=== PATIENT | male | born 1975 | race Caucasian/White ===

== ENCOUNTER 2018-03-16 20:03 | Observation (INO) | payer MEDICAID, OTHER, SELFPAY ==
[2018-03-16] MEDS ORDERED: HYDROMORPHONE HCL 0.5 MG/ 0.5 ML SYRINGE (J1170 PER 1) IV (20:30)
[2018-03-16] MEDS: HYDROMORPHONE HCL 0.5 MG/ 0.5 ML SYRINGE (J1170 PER 1) IV ×3 (20:56→23:05)
[2018-03-16 21:02] LABS: BASO # 0.1 10^3/uL (0.0-0.2); BASO % 0.7 % (0.0-1.0); EOS # 0.2 10^3/uL (0.0-0.50); EOS % 2.3 % (0.0-3.0); HEMATOCRIT 43.3 % (42.0-52.0); HEMOGLOBIN 15.7 g/dl (13.5-17.5); IMMATURE GRANULOCYTE % 0.3 % (0-3.0); LYMPH # 2.2 10^3/uL (1.5-4.5); LYMPH % 24.7 % (24.0-44.0); MEAN CORPUSCULAR HEMOGLOBIN 32.9 pg (27.0-33.0); MEAN CORPUSCULAR HGB CONC 36.3 g/dl (32.0-36.5); MEAN CORPUSCULAR VOLUME 90.8 fl (80.0-96.0); MONO # 0.9 10^3/uL (0.0-0.8); MONO % 9.6 % (0.0-5.0); NEUTROPHILS # 5.5 10^3/uL (1.8-7.7); NEUTROPHILS % 62.4 % (36.0-66.0); PLATELET COUNT, AUTOMATED 248 10^3/uL (150-450); RED BLOOD COUNT 4.77 10^6/uL (4.30-6.10); WHITE BLOOD COUNT 8.8 10^3/uL (4.0-10.0)
[2018-03-16 21:23] LABS: ALBUMIN 3.8 GM/DL (3.2-5.2); ALKALINE PHOSPHATASE 129 U/L (45-117); ALT/SGPT 57 U/L (12-78); ANION GAP 10 MEQ/L (8-16); AST/SGOT 38 U/L (7-37); BILIRUBIN,DIRECT < 0.1 MG/DL (0.0-0.2); BILIRUBIN,TOTAL 0.4 MG/DL (0.2-1.0); BLOOD UREA NITROGEN 11 MG/DL (7-18); CALCIUM LEVEL 8.3 MG/DL (8.5-10.1); CARBON DIOXIDE LEVEL 26 MEQ/L (21-32); CHLORIDE LEVEL 107 MEQ/L (98-107); CREATININE FOR GFR 0.84 MG/DL (0.70-1.30); GLOMERULAR FILTRATION RATE > 60.0 (>60); GLUCOSE, FASTING 94 MG/DL (70-100); POTASSIUM SERUM 3.8 MEQ/L (3.5-5.1); SODIUM LEVEL 143 MEQ/L (136-145); TOTAL PROTEIN 7.6 GM/DL (6.4-8.2)
[2018-03-16 21:38] LABS: INR 1.06; PARTIAL THROMBOPLASTIN TIME 28.3 SECONDS (25.4-37.6); PROTHROMBIN TIME 13.9 SECONDS (12.1-14.4)
[2018-03-16] MEDS ORDERED: ISOVUE-370 76% 100ML VIAL (Q9967) As Ordered (22:46)
[2018-03-17] MEDS: HYDROMORPHONE HCL 0.5 MG/ 0.5 ML SYRINGE (J1170 PER 1) IV ×6 (01:29→05:30)
[2018-03-17] MEDS ORDERED: ceFAZolin 2 GM/D5W 50 ML IV BAG (J0690 PER 500MG) As Ordered (01:50)
[2018-03-17] MEDS ORDERED: MORPHINE 4 MG/ML 1ML VIAL/SYRINGE (J2270) IV ×2 (02:00)
[2018-03-17] MEDS ORDERED: PERCOCET 5MG/325MG TAB PO ×2 (02:00)
[2018-03-17] MEDS ORDERED: ONDANSETRON 4MG/2ML VIAL (J2405) IV ×3 (02:00→06:30)
[2018-03-17] MEDS ORDERED: KETOROLAC 30 MG/ML VIAL (J1885) IV (02:00)
[2018-03-17] MEDS: ceFAZolin 1GM INJ (J0690 PER 500MG) As Ordered (02:52)
[2018-03-17] MEDS ORDERED: fentaNYL 100 MCG/2 ML INJECTION (J3010) As Ordered ×2 (02:58→04:26)
[2018-03-17] MEDS ORDERED: dexameTHASONE 4 MG/ML 1ML VIAL (J1100) As Ordered (02:58)
[2018-03-17] MEDS ORDERED: MIDAZOLAM INJ 2 MG/2 ML VIAL (J2250) As Ordered (02:58)
[2018-03-17] MEDS ORDERED: LIDOCAINE 2% INJ 100 MG/5 ML SDV (FOR ANES.) As Ordered (02:58)
[2018-03-17] MEDS ORDERED: ROCURONIUM BROMIDE 50 MG/5 ML VIAL As Ordered (02:58)
[2018-03-17] MEDS ORDERED: METOCLOPRAMIDE INJ 10MG/2ML VIAL (J2765) As Ordered (02:58)
[2018-03-17] MEDS ORDERED: ONDANSETRON 4MG/2ML VIAL (J2405) As Ordered (02:58)
[2018-03-17] MEDS ORDERED: fentaNYL 250 MCG/5 ML INJECTION (J3010) As Ordered (02:58)
[2018-03-17] MEDS ORDERED: PROPOFOL 200 MG/20 ML VIAL As Ordered ×2 (02:58)
[2018-03-17] MEDS ORDERED: SEVOFLURANE INHAL SOLN 250 ML BTL As Ordered (03:02)
[2018-03-17] MEDS ORDERED: HYDROMORPHONE HCL 0.5 MG/ 0.5 ML SYRINGE (J1170 PER 1) IV (04:00)
[2018-03-17] MEDS: LIDOCAINE W/EPINEPHRINE 1% 20ML VIAL As Ordered (04:06)
[2018-03-17] MEDS: fentaNYL 100 MCG/2 ML INJECTION (J3010) IV ×4 (04:28→04:55)
[2018-03-17] MEDS ORDERED: HYDROMORPHONE HCL 0.5 MG/ 0.5 ML SYRINGE (J1170 PER 1) As Ordered ×3 (04:31→05:04)
[2018-03-17] MEDS ORDERED: NORCO, ANEXSIA 5/325MG TABLET (HYDROcodone/ACETAMINOPHEN) As Ordered ×2 (04:43→05:03)
[2018-03-17] MEDS: NORCO, ANEXSIA 5/325MG TABLET (HYDROcodone/ACETAMINOPHEN) PO ×2 (04:48→05:18)
[2018-03-17] MEDS ORDERED: KETOROLAC 30 MG/ML VIAL (J1885) As Ordered (05:21)
[2018-03-17] MEDS: KETOROLAC 30 MG/ML VIAL (J1885) IV (05:24)
[2018-03-17] MEDS ORDERED: MORPHINE 10 MG/ML 1ML VIAL (J2270) As Ordered (05:52)
[2018-03-17] MEDS: MORPHINE 10 MG/ML 1ML VIAL (J2270) IV ×5 (05:54→06:15)
[2018-03-17] MEDS ORDERED: NALBUPHINE HCL 10 MG/ML AMP (J2300) IV (06:30)
[2018-03-17] MEDS ORDERED: diphenhydrAMINE INJ 50MG/ML VIAL (J1200) IV (06:30)
[2018-03-17] MEDS ORDERED: EPIDURAL/PCA KEYS XX (06:30)
[2018-03-17] MEDS ORDERED: NALOXONE INJ 0.4 MG/1 ML VIAL (J2310) IV (06:30)
[2018-03-17] MEDS ORDERED: MORPHINE 1MG/ML IN 0.9% NACL 100ML IV BAG As Ordered (06:35)
[2018-03-17] MEDS: MORPHINE 1MG/ML IN 0.9% NACL 100ML IV BAG IV (06:43)
[2018-03-17] MEDS: LR 1,000 ML IV (07:10)
[2018-03-17] MEDS: CelecoXIB (CeleBREX) 100 MG CAP PO (09:22)
[2018-03-17] MEDS: DOCUSATE SODIUM 100 MG CAP PO (09:22)
[2018-03-17] MEDS: ENOXAPARIN 30 MG/0.3 ML SYR (J1650) SC (09:22)
[2018-03-17] MEDS: PERCOCET 5MG/325MG TAB PO (10:43)
== END 2018-03-17 11:10 | disposition home or self-care (01) ==
LOC: M SDC 03-17 01:33 → M ED INP 03-17 01:50 → M PED 03-17 08:03 → M ED 20:03
DX: S82.201A Unspecified fracture of shaft of right tibia, initial encounter for closed fracture (principal); V28.0XXA Motorcycle driver injured in noncollision transport accident in nontraffic accident, initial encounter; Y92.410 Unspecified street and highway as the place of occurrence of the external cause; Y93.89 Activity, other specified; Y99.9 Unspecified external cause status; F17.210 Nicotine dependence, cigarettes, uncomplicated
CPT/HCPCS: 27759

== ENCOUNTER 2018-04-02 14:51 | Day surgery (SDC) | payer MEDICAID, SELFPAY ==
[2018-04-02] MEDS ORDERED: dexameTHASONE 10 MG/1 ML VIAL PRES.FREE (J1100) ×2 (14:52)
[2018-04-02] MEDS ORDERED: LIDOCAINE 1% MDV 20ML VIAL ×2 (14:52)
[2018-04-02] MEDS ORDERED: ROPIvacaine 0.5% 30 ML INJECTION (J2795 PER 1MG) ×2 (14:52)
[2018-04-02] MEDS ORDERED: LIDOCAINE 2% INJ 100 MG/5 ML SDV (FOR ANES.) As Ordered ×2 (16:10)
[2018-04-02] MEDS ORDERED: fentaNYL 100 MCG/2 ML INJECTION (J3010) As Ordered ×6 (16:10→19:50)
[2018-04-02] MEDS ORDERED: MIDAZOLAM INJ 2 MG/2 ML VIAL (J2250) As Ordered ×4 (16:10→19:50)
[2018-04-02] MEDS ORDERED: ONDANSETRON 4MG/2ML VIAL (J2405) As Ordered ×2 (16:10)
[2018-04-02] MEDS ORDERED: PROPOFOL 200 MG/20 ML VIAL As Ordered ×2 (16:10)
[2018-04-02] MEDS ORDERED: dexameTHASONE 4 MG/ML 1ML VIAL (J1100) As Ordered ×2 (16:10)
[2018-04-02] MEDS: fentaNYL 100 MCG/2 ML INJECTION (J3010) IV ×12 (17:51→20:04)
[2018-04-02] MEDS ORDERED: PERCOCET 5MG/325MG TAB As Ordered ×2 (17:54)
[2018-04-02] MEDS: PERCOCET 5MG/325MG TAB PO ×2 (17:57)
[2018-04-02] MEDS ORDERED: HYDROMORPHONE HCL 0.5 MG/ 0.5 ML SYRINGE (J1170 PER 1) As Ordered ×2 (18:11)
[2018-04-02] MEDS: HYDROMORPHONE HCL 0.5 MG/ 0.5 ML SYRINGE (J1170 PER 1) IV ×10 (18:13→18:41)
[2018-04-02] MEDS ORDERED: LR 1,000 ML IV ×4 (18:30)
[2018-04-02] MEDS ORDERED: PERCOCET 5MG/325MG TAB PO ×2 (18:30)
[2018-04-02] MEDS ORDERED: ONDANSETRON 4MG/2ML VIAL (J2405) IV ×2 (18:30)
[2018-04-02] MEDS ORDERED: ACETAMINOPHEN 325 MG TAB PO ×2 (18:45)
[2018-04-02] MEDS ORDERED: oxyCODONE 5MG TAB PO ×4 (18:45)
[2018-04-02] MEDS ORDERED: ACETAMINOPHEN TAB 650MG DOSE (2X325MG) PO ×2 (18:45)
[2018-04-02] MEDS: MIDAZOLAM INJ 2 MG/2 ML VIAL (J2250) IV ×4 (19:57→20:04)
== END 2018-04-02 21:25 | disposition home or self-care (01) ==
LOC: M SDC 14:51
DX: S82.201A Unspecified fracture of shaft of right tibia, initial encounter for closed fracture (principal); X58.XXXA Exposure to other specified factors, initial encounter; Y92.89 Other specified places as the place of occurrence of the external cause; Z92.89 Personal history of other medical treatment; Z93.9 Artificial opening status, unspecified; Y93.9 Activity, unspecified; Y99.9 Unspecified external cause status
CPT/HCPCS: 27759

== ENCOUNTER → 2018-07-23 | Outpatient (CLI) | payer OTHER ==
[~2018-07-23] MED LIST: BAYE325T12 PO; CELE1CAP4 PO; GABA-843 PO; NAPR220C PO; PERC5TAB12 PO
== END ==
LOC: M RAD 11:00
PROVIDERS: ATTEND Physician Assistant
DX: M50.322 Other cervical disc degeneration at C5-C6 level (principal)

== ENCOUNTER → 2018-07-25 | Outpatient (CLI) | payer OTHER ==
--- NOTE | 2018-07-27 09:03 | REP ---
MR CERVICAL SPINE WITHOUT CONTRAST: HISTORY: Degenerative disc disease. Bilateral uncinate process hypertrophy is present at the C3-4 level. This produces mild narrowing of the C3 neural foramina. A disc bulge and small central disc protrusion are present at the L4-5 level. There is mild effacement of the thecal sac without spinal cord compression. Bilateral uncinate process hypertrophy is present. This produces mild narrowing of the C4 neural foramina. A disc bulge and small left paracentral disc protrusion with associated osteophyte formation are present at the C5-6 level. There is mild effacement of the thecal sac without spinal cord compression. Bilateral uncinate process hypertrophy is present. This produces minimal and mild narrowing of the right and left C5 neural foramina respectively. A disc bulge with associated osteophyte formation is present at the C6-7 level. There is moderate effacement of the thecal sac without spinal cord compression. Bilateral uncinate process hypertrophy is present. This produced minimal and moderate narrowing of the right and left C6 neural foramina respectively. There is no other disc bulge or herniation. The remaining neural foramina are patent. The spinal cord is normal in signal intensity. The C4-5 through C6-7 intervertebral discs are decreased in height consistent with disc degeneration. A hemangioma is present in the C3 vertebral body. Normal signal intensity is present in the remaining cervical vertebral bodies. There is loss of the normal lordotic curve. IMPRESSION: There is cervical spondylosis at the C3-4 through C6-7 levels without spinal cord compression. Electronically Signed by Mckinley Rivera MD 07/27/2018 09:18 A
== END ==
LOC: M RAD 15:08
PROVIDERS: ATTEND Physician Assistant
DX: M47.812 Spondylosis without myelopathy or radiculopathy, cervical region (principal)

== ENCOUNTER → 2022-05-28 | Outpatient (REF) | payer OTHER, MEDICAID ==
[~2022-05-28] MED LIST changes: +GABA-282 PO; -GABA-843 PO
[2022-05-28 19:05] LABS: HEMATOCRIT 41.5 % (42.0-52.0); HEMOGLOBIN 14.4 g/dl (13.5-17.5); MEAN CORPUSCULAR HEMOGLOBIN 32.7 pg (27.0-33.0); MEAN CORPUSCULAR HGB CONC 34.7 g/dl (32.0-36.5); MEAN CORPUSCULAR VOLUME 94.1 fl (80.0-96.0); PLATELET COUNT, AUTOMATED 296 10^3/uL (150-450); RED BLOOD COUNT 4.41 10^6/uL (4.30-6.10); WHITE BLOOD COUNT 8.1 10^3/uL (4.0-10.0)
[2022-05-28 21:28] LABS: ALBUMIN 4.3 G/DL (3.2-5.2); ALT/SGPT 32 U/L (7.0-40); BILIRUBIN,TOTAL 0.5 MG/DL (0.3-1.2); BLOOD UREA NITROGEN 14 MG/DL (9-23); CALCIUM LEVEL 9.7 MG/DL (8.5-10.1); CARBON DIOXIDE LEVEL 25 MMOL/L (20-31); CHLORIDE LEVEL 104 MMOL/L (98-107); CREATININE FOR GFR 0.92 MG/DL (0.70-1.30); FREE T4 1.24 NG/DL (0.89-1.76); GLOMERULAR FILTRATION RATE > 60.0 (>60); GLUCOSE, FASTING 104 MG/DL (60-100); POTASSIUM SERUM 4.9 MMOL/L (3.5-5.1); SODIUM LEVEL 138 MMOL/L (136-145); THYROID STIMULATING HORMONE 0.683 uIU/ML (0.55-4.78); TOTAL PROTEIN 6.9 G/DL
== END ==
LOC: M SFHCCLAY 12:05
PROVIDERS: ATTEND Family Medicine
DX: F40.10 Social phobia, unspecified (principal); F32.9 Major depressive disorder, single episode, unspecified

== ENCOUNTER → 2025-06-15 | Outpatient (REF) | payer SELFPAY ==
[~2025-06-15] MED LIST changes: -BAYE325T12 PO; +BAYE325T2 PO; +GABA-1172 PO; -GABA-282 PO
[2025-06-15 17:36] LABS: ALT/SGPT 52 U/L (7.0-40); AST/SGOT 40 U/L (<34); CALCIUM LEVEL 8.8 MG/DL (8.5-10.1); CARBON DIOXIDE LEVEL 29 MMOL/L (20-31); CHLORIDE LEVEL 102 MMOL/L (98-107); CHOLESTEROL LEVEL 170 MG/DL (<200); CHOLESTEROL RISK RATIO 2.68 (<5); CREATININE FOR GFR 0.73 MG/DL (0.70-1.30); GLOMERULAR FILTRATION RATE > 90.0 (>60); LDL CHOLESTEROL 70.9 MG/DL (<100); NON-HDL-C 106.7 MG/DL; POTASSIUM SERUM 4.2 MMOL/L (3.5-5.1); SODIUM LEVEL 143 MMOL/L (136-145); TRIGLYCERIDES LEVEL 179 MG/DL (<150)
[2025-06-15 18:03] LABS: ESTIMATED AVERAGE GLUCOSE 88.0 MG/DL (60-110)
== END ==
LOC: M SFHCCLAY 13:37
PROVIDERS: ATTEND Physician Assistant
DX: Z00.00 Encounter for general adult medical examination without abnormal findings (principal); K12.2 Cellulitis and abscess of mouth; M54.50 Low back pain, unspecified